=== PATIENT | male | born 1955 | race Caucasian/White ===

== ENCOUNTER 2023-02-06 05:33 | Inpatient (IN) | payer OTHER ==
[~2023-02-06] VITALS: Ht 188 cm; Wt 100.7 kg
--- NOTE | 2023-02-06 06:06 | NUR ---
BIBRA FOR C/O 210 EPIGATRIC PAIN SINCE 529. NO ASSOSCIATED SOB, DIZZINESS, OR NASUEA. PER BATCH PLANT SUPERVISOR ECG, AFIB W RVR, NO HX OF AFIB. HX OF NM WITH STENT PLACEMENT IN 2018, AND REPORTS PAIN DOES NOT FEEL THE SAME. PT AWAKE AND ALERT X4 RR EVEN AND UNLABORED. PLACED ON INFORMATION CONSULTANT AND PULSE OX, RATE IN 160S AND IRREGULAR. TOOK 162 ASA DRAFTER TOOL DESIGN.
[2023-02-06] MEDS ORDERED: DILTIAZEM HCL 25 MG IV ONE (06:13)
[2023-02-06 06:24] LABS: BASOPHILS # (AUTO) 0.1 K/uL (0.0-0.2); BASOPHILS % (AUTO) 0.5 % (0.0-2.0); EOSINOPHILS % (AUTO) 5.6 % (0.0-6.0); HEMATOCRIT 47 % (39-51); HEMOGLOBIN 15.9 g/dL (13.5-17.5); LYMPHOCYTES # (AUTO) 2.5 K/uL (0.8-4.8); LYMPHOCYTES % (AUTO) 25.7 % (20.0-44.0); MEAN CORPUSCULAR HGB CONC 34 g/dl (31.0-36.0); MEAN CORPUSCULAR VOLUME 89 fL (80-96); MONOCYTES # (AUTO) 1.5 K/uL (0.1-1.30); MONOCYTES % (AUTO) 15.4 % (2.0-12.0); NEUTROPHILS # (AUTO) 5.2 K/uL (1.8-8.9); NEUTROPHILS % (AUTO) 52.8 % (43.0-81.0); PLATELET COUNT (AUTO) 294 K/uL (150-450); RED BLOOD CELL COUNT(AUTO) 5.31 MIL/uL (4.5-6.0); WHITE BLOOD COUNT (AUTO) 9.8 K/uL (4.3-11.0)
[2023-02-06] MEDS ORDERED: ASPIRIN EC 81 MG TABLET.DR PO ONE (06:30)
[2023-02-06] MEDS ORDERED: DILTIAZEM HCL 50 MG IV IV ONE ×2 (06:30)
[2023-02-06] MEDS ORDERED: ASPIRIN 81 MG TAB.CHEW ONE (06:35)
[2023-02-06 06:45] LABS: CARBON DIOXIDE 28 mmol/L (21-32); CHLORIDE 104 mmol/L (98-107); CREATININE 1.1 mg/dL (0.6-1.3); GLUCOSE 208 mg/dL (74-106); POTASSIUM 3.5 mmol/L (3.5-5.1); SODIUM SERUM 140 mmol/L (136-145); UREA NITROGEN, BLOOD 16 mg/dL (7-18)
[2023-02-06] MEDS ORDERED: AMIODARONE 150 MG/3 ML VIAL IV ONE (07:13)
--- NOTE | 2023-02-06 07:22 | NUR ---
COVID SWAB TAKEN SENT TO LAB
[2023-02-06] MEDS ORDERED: AMIODARONE 150 MG in IV D5W 100 ML IV ONE (07:30)
--- NOTE | 2023-02-06 07:35 | NUR ---
Patient AOx4 able to express his concerns. Patient with no signs of distress, states he is aware of plan of care and verbalized agreement. Daughter at bedside, per pts request. ALl safety precautions taken, no signs of IV infiltration. Will continue to monitor.
[2023-02-06 08:00] VITALS: BP 122/78
[2023-02-06] MEDS ORDERED: AMIODARONE 450 MG in IV D5W 241 ML IV PRN (08:00)
--- NOTE | 2023-02-06 09:11 | NUR ---
[phone] FAX # FOR CLINICALS. UNDERGROUND TRUCK OPERATOR KIMMIE #[phone] OPT[facility] 2
[2023-02-06 09:46] LABS: ALBUMIN 3.5 g/dL (3.4-5.0); BILIRUBIN,TOTAL 0.6 mg/dL (0.2-1.0); CALCIUM, SERUM 8.9 mg/dL (8.5-10.1); MAGNESIUM 2.3 mg/dL (1.8-2.4); POTASSIUM 4.4 mmol/L (3.5-5.1); TOTAL PROTEIN, SERUM 6.9 g/dL (6.4-8.2)
--- NOTE | 2023-02-06 10:20 | NUR ---
room 111-1 , admitting made aware
--- NOTE | 2023-02-06 10:49 | NUR ---
given report to Neeta FISHMAN, for cont of care
[2023-02-06] MEDS ORDERED: ACETAMINOPHEN 325 MG TABLET PO PRN (11:00)
[2023-02-06] MEDS ORDERED: Z GUARD REMEDY 4 OZ OINT TP PRN (11:00)
[2023-02-06] MEDS ORDERED: MAGNESIUM HYDROXIDE 30 ML UDC PO PRN (11:00)
[2023-02-06] MEDS ORDERED: MAG HYDROX/AL HYDROX/SIMETH 30 ML UDC PO PRN (11:00)
[2023-02-06] MEDS ORDERED: ONDANSETRON HCL/PF 4 MG/2 ML VIAL IVP PRN (11:00)
--- NOTE | 2023-02-06 11:10 | NUR ---
yarn mercerizer operator helper note RECEIVED PATIENT FROM ER , JENNIFER WAS ADMITTED WITH CHEST PAIN AND IRREGULAR HEART BEAT , WAS DIAGNOSED WITH NONSTEMI AND A FIB .PATIENT WAS ADMITTED TO THE TELE UNIT ON AMIODARONE DRIP 1 ML/HR TILL 12 40 THEN 0.5 MG /HR PATIENT IS ALERT , ORIENTED TIMES 3 , ON 2 L OF OXYGEN VIA NC, O2 SAT 98 % , BREATHING NON LABORED , NO PAIN OR DISCOMFORT AT THIS TIME .IV ACCESS ON THE LEFT WRIST 20 G WITH AMIODARONE RUNNING .BED IS AT LOWEST POSITIOB , CALL LIGHT WITHIN REACH .WILL CONTINUE TO MONITOR.
[2023-02-06] MEDS ORDERED: ATOR40TA PO (11:12)
[2023-02-06] MEDS ORDERED: OMEP20CA15 PO (11:12)
[2023-02-06] MEDS ORDERED: LISI-768 PO (11:12)
[2023-02-06] MEDS ORDERED: ASPI-1169 PO (11:12)
[2023-02-06] MEDS ORDERED: CARV3.122 PO (11:12)
[2023-02-06] MEDS: ASPIRIN 81 MG TAB.CHEW PO SCH (11:35)
[2023-02-06] MEDS: ENOXAPARIN SODIUM 80 MG/0.8 ML DISP.SYRIN SQ SCH ×2 (11:42→22:47)
[2023-02-06 12:24] VITALS: BP 140/87
[2023-02-06 16:00] VITALS: BP 125/63
--- NOTE | 2023-02-06 18:36 | NUR ---
RN CLOSING NOTE PATIENT IS ALERT , ORIENTED TIMES 4 , ON O2 2L VIA N/C , BREATHING NON LABOR , O2 SAT 98 % .PATIENT HAS SR , AMIODARONE IV DISCONTINUE , 400 MG ORALLY TWICE DAILY . ALL MEDICATIONS WERE ADMINISTERED ORDERED , ALL NEEDS WERE MET ,WILL ENDORSE STONE BREAKER NURSE TO FALLOW POC.
--- NOTE | 2023-02-06 19:30 | NUR ---
JENNIFER RN OPENING NOTE RECEIVED PT IN BED AWAKE, WATCHING TV AT THIS TIME. A/O X4, ABLE TO MAKE NEEDS KNOWN. ON O2 2L VIA NC WITH NO S/S OF SOB OR DISTRESS. DENIES PAIN AT THIS TIME. ON INLAYER READING SR 62. IV ACCESS LFA #20G, INTACT, PATENT, FLUSHING WELL. SAFETY MEASURES IN PLACE: BED LOCKED AND IN LOWEST POSITION, SIDE RAILS UP X2, CALL LIGHT AND TRAY TABLE WITHIN REACH. WILL CONTINUE TO MONITOR AND ASSIST.
[2023-02-06 20:00] VITALS: BP 118/64
[2023-02-06] MEDS: AMIODARONE HCL 200 MG TABLET PO SCH (21:00)
--- NOTE | 2023-02-06 21:55 | NUR ---
RN NOTE PT HAS SCHEDULED AMIODARONE 400 MG FOR 2100, PARAMETERS TO HOLD IF HR <60. PT HR 58-62, BP 118/64, SINUS RHYTHM. DR GU CONSULTED, ORDERED TO HOLD MEDICATION.
--- NOTE | 2023-02-06 22:45 | NUR ---
RN NOTE LOVENOX 80 MG SCHEDULED FOR 2100 LATE ADMIN TO ACCOUNT FOR TIMING OF LAST ADMIN.
[2023-02-07] VITALS: BP 108/60
[2023-02-07 04:00] VITALS: BP 100/53
--- NOTE | 2023-02-07 06:59 | NUR ---
JENNIFER RN CLOSING NOTE PT IN BED AWAKE. A/O X4, ABLE TO MAKE NEEDS KNOWN. STABLE ON O2 2L VIA NC WITH NO S/S OF SOB OR DISTRESS, O2 SAT AT 96%. DENIES PAIN AT THIS TIME. ON CREW SUPERVISOR READING SINUS ORLIN 59 ([id number]). IV ACCESS LFA #20G SL, INTACT, PATENT, FLUSHING WELL. ALL CARE PROVIDED AND MEDS TOLERATED WELL. SAFETY MEASURES MAINTAINED: BED LOCKED AND IN LOWEST POSITION, SIDE RAILS UP X2, CALL LIGHT AND TRAY TABLE WITHIN REACH. WILL ENDORSE JUAN TO DAY SHIFT NURSE.
--- NOTE | 2023-02-07 07:24 | NUR ---
JENNIFER RN OPENING NOTE PT IN BED AWAKE, WATCHING TV AT THIS TIME. A/O X4, ABLE TO MAKE NEEDS KNOWN. ON O2 2L VIA NC WITH NO S/S OF SOB OR DISTRESS. DENIES PAIN AT THIS TIME. ON TUFTING MACHINE OPERATOR SINGLE NEEDLE READING SR 62. IV ACCESS LFA #20G, INTACT, PATENT, FLUSHING WELL. SAFETY MEASURES IN PLACE: BED LOCKED AND IN LOWEST POSITION, SIDE RAILS UP X2, CALL LIGHT AND TRAY TABLE WITHIN REACH. WILL CONTINUE TO MONITOR AND FALLOW POC
[2023-02-07] MEDS: ENOXAPARIN SODIUM 80 MG/0.8 ML DISP.SYRIN SQ SCH ×2 (08:20→21:50)
[2023-02-07] MEDS: ASPIRIN 81 MG TAB.CHEW PO SCH (08:20)
[2023-02-07] MEDS: AMIODARONE HCL 200 MG TABLET PO SCH ×2 (08:20→21:28)
[2023-02-07 08:22] LABS: BASOPHILS % (AUTO) 0.2 % (0.0-2.0); EOSINOPHILS % (AUTO) 4.2 % (0.0-6.0); HEMATOCRIT 48 % (39-51); HEMOGLOBIN 15.5 g/dL (13.5-17.5); LYMPHOCYTES # (AUTO) 2.9 K/uL (0.8-4.8); LYMPHOCYTES % (AUTO) 25.9 % (20.0-44.0); MEAN CORPUSCULAR HGB CONC 33 g/dl (31.0-36.0); MEAN CORPUSCULAR VOLUME 91 fL (80-96); MONOCYTES # (AUTO) 1.3 K/uL (0.1-1.30); NEUTROPHILS # (AUTO) 6.5 K/uL (1.8-8.9); NEUTROPHILS % (AUTO) 57.7 % (43.0-81.0); PLATELET COUNT (AUTO) 308 K/uL (150-450); RED BLOOD CELL COUNT(AUTO) 5.25 MIL/uL (4.5-6.0); WHITE BLOOD COUNT (AUTO) 11.2 K/uL (4.3-11.0)
[2023-02-07 09:00] LABS: ALBUMIN 3.5 g/dL (3.4-5.0); BILIRUBIN,TOTAL 0.7 mg/dL (0.2-1.0); CALCIUM, SERUM 9.2 mg/dL (8.5-10.1); CREATININE 1.2 mg/dL (0.6-1.3); MAGNESIUM 2.3 mg/dL (1.8-2.4); PHOSPHORUS 3.9 mg/dL (2.5-4.9); POTASSIUM 3.8 mmol/L (3.5-5.1); TOTAL PROTEIN, SERUM 6.8 g/dL (6.4-8.2)
[2023-02-07] MEDS: ATORVASTATIN 40 MG TABLET PO SCH (09:05)
[2023-02-07 09:26] VITALS: BP 136/78
[2023-02-07 10:31] LABS: CHOLESTEROL 157 mg/dL (<200); HDL CHOLESTEROL 50 mg/dL (40-60); LDL 88 mg/dL (0-99); TRIGLYCERIDES 173 mg/dL (30-150)
[2023-02-07] MEDS: METFORMIN 500 MG TABLET PO SCH ×2 (12:04→16:17)
[2023-02-07 12:06] VITALS: BP 128/78
[2023-02-07 16:09] VITALS: BP 135/84
--- NOTE | 2023-02-07 18:29 | NUR ---
JENNIFER RN CLOSING NOTE PT IN BED AWAKE. A/O X4, ABLE TO MAKE NEEDS KNOWN. STABLE ON O2 2L VIA NC WITH NO S/S OF SOB OR DISTRESS, O2 SAT AT 96%. DENIES PAIN AT THIS TIME. ON CAR LUBRICATOR READING SINUS ORLIN 59 ([id number]). IV ACCESS LFA #20G SL, INTACT, PATENT, FLUSHING WELL. ALL CARE PROVIDED AND MEDS TOLERATED WELL. SAFETY MEASURES MAINTAINED: BED LOCKED AND IN LOWEST POSITION, SIDE RAILS UP X2, CALL LIGHT AND TRAY TABLE WITHIN REACH. WILL ENDORSE JUAN to awake overnight monitor NURSE.
[2023-02-07 20:00] VITALS: BP 135/70
--- NOTE | 2023-02-07 20:05 | NUR ---
JENNIFER RN OPENING NOTE PT IS SITTING IN BED AT HIGH DAHL POSITION. HE IS ALERT AND ORIENTED, AO X 4. HE IS ABLE TO MAKE NEEDS KNOWN. PT IS ON RA, TOLERATED WELL. NO S/S OF DISTRESS OR SOB. PT DENIES OF HAVING PAIN AT THIS MOMENT. PT IS ON EXTERNAL SECURITY OFFICER. ON THE MONITOR, HIS HEART RHYTHM IS SR WITH HR AT 60S. IV ACCESS IS AT HIS L FA #20G, SL. FLUSHED WELL WITH 10 CC OF NS. IV SITE IS PATENT AND INTACT. SAFETY MEASURES IN PLACE: BED LOCKED AND IN LOWEST POSITION; SIDE RAILS UP X2; CALL LIGHT AND TABLE ARE WITHIN REACH. WILL CONTINUE MONITORING THE PT AND PROVIDE THE CARE PT NEEDS.
--- NOTE | 2023-02-07 21:40 | NUR ---
REGULATORY SPECIALIST NOTE CONTACTED SWIMMING POOL PLASTERER HELPER Nickoals VYAS, AND NOTIFIED HER THAT PT WOULD HAVE CT ANGIOGRAM TOMORROW. AND ASKED HER WHETHER SHE WANT TO HOLD PT'S 80 MG LOVENOX DUE AT 2200 TONIGHT. RECEIVED REPLY: GIVE TONIGHT AND HOLD TOMORROW'S DOSE. CHARGE NURSE, OJRGE, NOTIFIED.
[2023-02-08] VITALS (7 sets, daily range): BP systolic 114–146; BP diastolic 60–77
--- NOTE | 2023-02-08 06:36 | NUR ---
FRIT MIXER CLOSING NOTE PT IS SLEEPING IN BED AT SEMI DAHL POSITION; EASILY BEING AROUSED. HE IS ALERT AND ORIENTED, AO X 4. HE IS ABLE TO MAKE NEEDS KNOWN. PT IS ON RA, TOLERATED WELL. NO S/S OF DISTRESS OR SOB. PT DENIES OF HAVING PAIN AT THIS MOMENT. PT IS ON EXTERNAL LIBRARY MONITOR. ON THE MONITOR, HIS HEART RHYTHM IS SR WITH HR AT 60S. IV ACCESS IS AT HIS L FA #20G, SL. FLUSHED WELL WITH 10 CC OF NS. IV SITE IS PATENT AND INTACT. PATIENT HAS BEEN ON NPO SINCE 2358 ON 02/07/2023. PT IS GOING TO HAVE CT ANGIOGRAM TODAY; CONSENT IS IN PT'S CHART. SAFETY MEASURES IN PLACE: BED LOCKED AND IN LOWEST POSITION; SIDE RAILS UP X2; CALL LIGHT AND TABLE ARE WITHIN REACH. WILL ENDORSE NEXT SHIFT FOR CONTINUING PT CARE. Addendum: 02/08/23 at 0641 by GOPI HUDSON RN LOVENOX DUE AT 0900 NEEDS TO BE HELD THIS MORNING PER MD ORDER.
--- NOTE | 2023-02-08 07:31 | NUR ---
JENNIFER RN OPENING NOTE PT IN BED AWAKE, WATCHING TV AT THIS TIME. A/O X4, ABLE TO MAKE NEEDS KNOWN. ON ROOM AIR WITH NO S/S OF SOB OR DISTRESS. DENIES PAIN AT THIS TIME. ON PREASSEMBLER PRINTED CIRCUIT BOARD READING SR 60 BPM. IV ACCESS LFA #20G, INTACT, PATENT, FLUSHING WELL. SAFETY MEASURES IN PLACE: BED LOCKED AND IN LOWEST POSITION, SIDE RAILS UP X2, CALL LIGHT AND TRAY TABLE WITHIN REACH. WILL CONTINUE TO MONITOR AND CARE FOR PATIENT PER MD POC.
[2023-02-08] MEDS: ENOXAPARIN SODIUM 80 MG/0.8 ML DISP.SYRIN SQ SCH ×2 (09:00→21:34)
[2023-02-08] MEDS ORDERED: IOHEXOL-350 100 ML VIAL IV ONE (09:25)
[2023-02-08] MEDS ORDERED: IV NS 0.9% 250 ML IV ONE (09:25)
[2023-02-08] MEDS ORDERED: CT SWABBABLE VALVE TRANS SET 1 EA INFUS.SET MC ONE (09:25)
[2023-02-08] MEDS ORDERED: NITROGLYCERIN 0.4 MG/TAB BOTTLE ONE (09:25)
[2023-02-08] MEDS ORDERED: METOPROLOL TARTRATE INJ 5 MG/5 ML AMPUL ONE (09:25)
[2023-02-08 09:30] LABS: BASOPHILS # (AUTO) 0.1 K/uL (0.0-0.2); BASOPHILS % (AUTO) 0.7 % (0.0-2.0); EOSINOPHILS % (AUTO) 3.5 % (0.0-6.0); HEMATOCRIT 48 % (39-51); HEMOGLOBIN 15.6 g/dL (13.5-17.5); MEAN CORPUSCULAR HGB CONC 33 g/dl (31.0-36.0); MEAN CORPUSCULAR VOLUME 91 fL (80-96); MONOCYTES # (AUTO) 1.1 K/uL (0.1-1.30); MONOCYTES % (AUTO) 12.5 % (2.0-12.0); NEUTROPHILS # (AUTO) 5.1 K/uL (1.8-8.9); NEUTROPHILS % (AUTO) 60.3 % (43.0-81.0); PLATELET COUNT (AUTO) 271 K/uL (150-450); RED BLOOD CELL COUNT(AUTO) 5.32 MIL/uL (4.5-6.0); WHITE BLOOD COUNT (AUTO) 8.5 K/uL (4.3-11.0)
[2023-02-08 09:44] LABS: CALCIUM, SERUM 9.5 mg/dL (8.5-10.1); CREATININE 1.1 mg/dL (0.6-1.3); POTASSIUM 4.9 mmol/L (3.5-5.1)
[2023-02-08 09:52] LABS: ALBUMIN 3.3 g/dL (3.4-5.0); BILIRUBIN,TOTAL 0.7 mg/dL (0.2-1.0); MAGNESIUM 2.3 mg/dL (1.8-2.4); PHOSPHORUS 3.9 mg/dL (2.5-4.9); TOTAL PROTEIN, SERUM 6.7 g/dL (6.4-8.2)
[2023-02-08] MEDS ORDERED: METOPROLOL TARTRATE INJ 5 MG/5 ML AMPUL IVP PRN (10:00)
[2023-02-08] MEDS ORDERED: NITROGLYCERIN 0.4 MG/TAB BOTTLE SL ONE (10:00)
[2023-02-08] MEDS: ASPIRIN 81 MG TAB.CHEW PO SCH (10:26)
[2023-02-08] MEDS: ATORVASTATIN 40 MG TABLET PO SCH (10:27)
[2023-02-08] MEDS: AMIODARONE HCL 200 MG TABLET PO SCH ×2 (10:27→21:33)
--- NOTE | 2023-02-08 18:45 | NUR ---
JENNIFER RN CLOSING NOTE (DAY SHIFT) PT IN BED AWAKE. A/O X4, ABLE TO MAKE NEEDS KNOWN. STABLE ON ROOM AIR WITH NO S/S OF SOB OR DISTRESS, O2 SAT AT 95% TO 97%. DENIES PAIN AT THIS TIME. ON MOPHEAD TRIMMER AND WRAPPER READING SINUS ORLIN TO SINUS RYTHYM 50s TO 60s BPM. IV ACCESS LEFT AC #20G SL, INTACT, PATENT, FLUSHING WELL. ALL CARE PROVIDED AND MEDS TOLERATED WELL. SAFETY MEASURES MAINTAINED: BED LOCKED AND IN LOWEST POSITION, SIDE RAILS UP X2, CALL LIGHT AND TRAY TABLE WITHIN REACH. CT ANGIOGRAM WITH 3D IMAGE COMPLETED IN AM. WILL ENDORSE TO RESIDENTIAL CARE FACILITY MANAGER NURSE FOR JUAN.
--- NOTE | 2023-02-08 19:30 | NUR ---
CEMETERY WORKER OPENING RECEIVED PATIENT IN BED, AWAKE, ALERT AND ORIENTED X4. ABLE TO COMMUNICATE NEEDS WITH THE STAFFS. AFEBRILE AND NOT IN ANY FORM OF ACUTE DISTRESS. BREATHING EVEN AND NON LABORED. ON TELE MONITORING WITH CURRENT READING OF SR 65. WITH IV ACCESS ON LAC 20G-SL. SAFETY MEASURES IN PLACE. KEPT BED IN LOCKED AND IN LOW POSITION. SIDE RAILS UP X2. ADVISED TO USE THE CALL LIGHT WHEN IN NEED OF ASSISTANCE.
--- NOTE | 2023-02-08 20:55 | NUR ---
2054 Dr. Pride called for CTCA result of patient. CTCA result relayed and sent to him as requested.
[2023-02-09] VITALS: BP 146/61
[2023-02-09 04:00] VITALS: BP 147/72
--- NOTE | 2023-02-09 06:30 | NUR ---
VARNISHING UNIT OPERATOR CLOSING NOTE PATIENT IN BED, ASLEEP BUT EASY TO AROUSE AND RESPONSIVE. ALERT AND ORIENTED X4. ABLE TO COMMUNICATE NEEDS WITH THE STAFFS. AFEBRILE AND NOT IN ANY FORM OF ACUTE DISTRESS. BREATHING EVEN AND NON LABORED. ON TELE MONITORING WITH CURRENT READING OF SB 54 WITH BBB. WITH IV ACCESS ON LAC 20G-SL. MEDICATED ORDERED. SAFETY MEASURES IN PLACE. KEPT BED IN LOCKED AND IN LOW POSITION. SIDE RAILS UP X2. ADVISED TO USE THE CALL LIGHT WHEN IN NEED OF ASSISTANCE. ALL NURSING NEEDS ATTENDED. ENDORSED TO INCOMING SHIFT FOR CONTINUITY OF CARE.
--- NOTE | 2023-02-09 07:33 | NUR ---
INVESTMENT REPRESENTATIVE NOTE PATIENT IN BED , ALERT ORIENTED X4 ON RA ,NO SOB NOTED AT THIS TIME, ON TELE MONITOR SR HR 58 LT AC HL INTACT AND FLUSHED WELL , BED IN LOWEST AND LOCKED POSITION , SAFETY , MEASURE IMPLEMENTED CALL LIGHT WITHIN REACH , WILL CONT TO MONITOR CLOSELY
[2023-02-09 08:00] VITALS: BP 129/71
[2023-02-09] MEDS: AMIODARONE HCL 200 MG TABLET PO SCH ×2 (08:05→20:33)
[2023-02-09] MEDS: ATORVASTATIN 40 MG TABLET PO SCH (08:05)
--- NOTE | 2023-02-09 08:17 | NUR ---
SUPERVISOR TUBING NOTE PER DR SUSY COLON TO GIVE AMIODARONE 400 MG HR 58-60
[2023-02-09] MEDS: ASPIRIN 81 MG TAB.CHEW PO SCH (09:45)
[2023-02-09] MEDS: ENOXAPARIN SODIUM 80 MG/0.8 ML DISP.SYRIN SQ SCH ×2 (09:45→20:33)
--- NOTE | 2023-02-09 10:08 | NUR ---
television journalist note spoke with dr eugenie daley to to vice Mccullough and asa with posable angiogram tomorrow
--- NOTE | 2023-02-09 11:49 | NUR ---
AREA DIRECTOR OF HOME HEALTH SALES NOTE PER DR AMANDA COLON TO ORDER PROTONIX ,AWARE THAT OMEPRAZOLE NOT AVAILABLE IN HOSPITAL, PATIENT TAKING OMEPROZOL AT HOME, ASLO DR ZURITA AT BEDSIDE DISCUSSED ABOUT CARDIAC CATH TOMORROW
[2023-02-09 12:00] VITALS: BP 116/91
--- NOTE | 2023-02-09 14:41 | NUR ---
PROCESS STEWARD NOTE SPOKE WITH DR MONROE ORDERED NPO AFTER EARLY BREAKFAST AND GET CONCERT FOR CARDIAC CATH, PER PATIENT NOT GOING TO SIGNED NOW , HIS BROTHER WILL SPEAK WITH DR LAUREN WILL F\U Addendum: 02/09/23 at 1715 by JOSEPH COPPOLA RN gave phone number of brothel of patient to dr monroe to call him per patient request, patent dont want to sign consent before dr varma to his brother
--- NOTE | 2023-02-09 15:03 | NUR ---
TUBE ROOM SUPERVISOR NOTE CALLED TO DIETARY DEPARTMENT NOTIFIED THAT PATIENT NEED EARLY BREAKFAST WILL BE NPO AFTER THIS ,GOING TO CARDIAC CATHETERIZATION
[2023-02-09 16:00] VITALS: BP 116/64
--- NOTE | 2023-02-09 17:52 | NUR ---
telephoner note patient signed consent for cardiac cath
--- NOTE | 2023-02-09 18:44 | NUR ---
telemetry registered nurse note patient in bed , all needs attended , on ra no sob noted , on tele monitor sr hr 60 . lt fa hl intact and flushed well , no c\o pain or discomfort , all needs attended will cont to monitor closely
--- NOTE | 2023-02-09 19:30 | NUR ---
AIRPLANE TESTER OPENING NOTE RECEIVED PATIENT IN BED, AWAKE, ALERT AND ORIENTED X4. ABLE TO COMMUNICATE NEEDS. AFEBRILE AND NOT IN ANY FORM OF ACUTE DISTRESS. BREATHING EVEN AND NON LABORED. ON TELE MONITORING WITH CURRENT READING OF SR 63. WITH IV ACCESS ON LAC 20G-SL. SAFETY MEASURES IN PLACE. KEPT BED IN LOCKED AND IN LOW POSITION. SIDE RAILS UP X2. INSTRUCTED TO USE THE CALL LIGHT WHEN IN NEED OF ASSISTANCE. WILL CONTINUE TO MONITOR THROUGHOUT THE SHIFT.
[2023-02-09 20:00] VITALS: BP 135/58
--- NOTE | 2023-02-09 20:38 | NUR ---
RN NOTE PT SCHEDULED LOVENOX HELD AT THIS TIME D/T PT SCHEDULED FOR CARDIAC CATH IN AM. WILL CONT TO MONITOR.
[2023-02-10] VITALS: BP 131/63
[2023-02-10 04:00] VITALS: BP 128/68
--- NOTE | 2023-02-10 06:00 | NUR ---
RN NOTE CALLED KITCHEN TO F/UP ABOUT PT EARLY BREAKFAST TO BE SERVE PER MD ORDER. THEY SAID BREAKFAST CAN SERVE AT 0700 EARLIEST.
--- NOTE | 2023-02-10 06:44 | NUR ---
APPLIANCE PAINTER AND REFINISHER CLOSING NOTE PATIENT REMAINS IN BED, AWAKE, ALERT AND ORIENTED X4. ABLE TO COMMUNICATE NEEDS. AFEBRILE AND NOT IN ANY FORM OF ACUTE DISTRESS. BREATHING EVEN AND NON LABORED. ON TELE MONITORING WITH CURRENT READING OF SR 61. WITH IV ACCESS ON LAC 20G-SL. SAFETY MEASURES IN PLACE. KEPT BED IN LOCKED AND IN LOW POSITION. SIDE RAILS UP X2. DUE MEDS GIVEN INSTRUCTED TO USE THE CALL LIGHT WHEN IN NEED OF ASSISTANCE. AWAITING FOR BREAKFAST TO BE SERVED THEN NPO AFTERWARDS, WILL ENDORSE TO AM SHIFT NURSE FOR CONTINUITY OF CARE.
[2023-02-10 08:00] VITALS: BP 147/50
[2023-02-10] MEDS: ENOXAPARIN SODIUM 80 MG/0.8 ML DISP.SYRIN SQ SCH ×2 (08:02→21:00)
[2023-02-10] MEDS: ASPIRIN 81 MG TAB.CHEW PO SCH (08:16)
[2023-02-10 08:22] LABS: BASOPHILS # (AUTO) 0.1 K/uL (0.0-0.2); BASOPHILS % (AUTO) 0.6 % (0.0-2.0); EOSINOPHILS % (AUTO) 3.4 % (0.0-6.0); HEMATOCRIT 45 % (39-51); HEMOGLOBIN 14.9 g/dL (13.5-17.5); LYMPHOCYTES # (AUTO) 1.9 K/uL (0.8-4.8); LYMPHOCYTES % (AUTO) 22.7 % (20.0-44.0); MEAN CORPUSCULAR HGB CONC 33 g/dl (31.0-36.0); MEAN CORPUSCULAR VOLUME 89 fL (80-96); MONOCYTES % (AUTO) 12.7 % (2.0-12.0); NEUTROPHILS % (AUTO) 60.6 % (43.0-81.0); PLATELET COUNT (AUTO) 270 K/uL (150-450); RED BLOOD CELL COUNT(AUTO) 5.03 MIL/uL (4.5-6.0); WHITE BLOOD COUNT (AUTO) 8.2 K/uL (4.3-11.0)
[2023-02-10 08:32] LABS: CALCIUM, SERUM 9.1 mg/dL (8.5-10.1); CREATININE 1.1 mg/dL (0.6-1.3); POTASSIUM 4.1 mmol/L (3.5-5.1)
[2023-02-10] MEDS: AMIODARONE HCL 200 MG TABLET PO SCH ×2 (08:48→20:59)
[2023-02-10] MEDS: ATORVASTATIN 40 MG TABLET PO SCH (08:48)
[2023-02-10 12:00] VITALS: BP 145/66
--- NOTE | 2023-02-10 12:00 | NUR ---
PATIENT REQUESTED TO CHANGE HIS ROOM BECAUSE THE NEW ADMISSION WAS MAKING A LOT OF NOISE DUE TO THE RIGHT HIP FRACTURE PAIN, SO PATIENT IAN ARVIZU TRANSFERRED TO ROOM 104
[2023-02-10] MEDS: PANTOPRAZOLE 40 MG TABLET.DR PO SCH ×2 (12:40→16:29)
[2023-02-10] MEDS ORDERED: IV NS 0.9% 1,000 ML ONE (14:12)
[2023-02-10] MEDS ORDERED: IV SET PRIMARY PUMP SET 1 EA INFUS.SET MC ONE (14:12)
[2023-02-10] MEDS ORDERED: IODIXANOL 150 ML IV ONE (14:12)
[2023-02-10] MEDS ORDERED: LIDOCAINE HCL/MPF 1% 30 ML VIAL IJ ONE (14:13)
[2023-02-10] MEDS ORDERED: NITROGLYCERIN IN 5 % DEXTROSE 250 ML IV ONE (14:13)
--- NOTE | 2023-02-10 14:40 | NUR ---
PATIENT TAKEN TO THE SURGERY CARDIAC CATH BY OR STAFF
[2023-02-10] MEDS ORDERED: FENTANYL PF 100MCG/2ML AMPUL ONE (15:14)
[2023-02-10] MEDS ORDERED: MIDAZOLAM HCL 2 MG/2ML VIAL ONE (15:14)
[2023-02-10 16:00] VITALS: BP 110/70
--- NOTE | 2023-02-10 17:05 | NUR ---
TR BAND AIR REMOVAL 3RD ATTEMPT OXYGEN SATURATION 97% BP: 134/79 NO BLEEDING 5 CC AIR REMOVED REMAINING 3 CC WILL REMOVE THE REMAINING IN 150 MINUTES
--- NOTE | 2023-02-10 17:25 | NUR ---
IN ORDER TO REMOVE 3 CC OF AIR FROM PATIENT'S TR BAND I CHECKED THE PATIENT'S OXYGEN FROM RIGHT INDEX FINGER OXYGEN SATURATION 96% AND BP FROM HIS LEFT ARM 126/69.
--- NOTE | 2023-02-10 17:30 | NUR ---
TR BAND PLACED ON PATIENT'S RIGHT WRIST AT 1531 AT OPERATION ROOM WITH 16 CC OF AIR. 2 HRS AFTER AT 1730 3 CC OF AIR REMOVED WITHOUT BLEEDING. IN 15 MINUTES LATER I WILL TRY AGAIN TO REMOVE ANOTHER 3-4 CC.
--- NOTE | 2023-02-10 17:50 | NUR ---
TR BAND AIR REMOVING STEP 2: OXYGEN SATURATION 97 BP: 121/73 5CC OF AIR REMOVED WITHOUT BLEEDING TOTAL OF 7 CC SO FAR REMOVED OUT OF 16CC. REMAININ CC
--- NOTE | 2023-02-10 18:10 | NUR ---
TR BAND AIR REMOVAL OXYGEN 96% BP:134/69 5 CC OF AIR REMOVED NO BLEEDING REMAINING 3 CC
--- NOTE | 2023-02-10 18:25 | NUR ---
TR BAND AIR REMOVAL OXYGEN 95% BP: 131/61 REMAINING AIR 3 CC REMOVED NO BLEEDING TR BAND REMOVED NO BLEEDING, I UNFASTENED THE TR BAND WITH GENTLE PRESSURE, REMOVED THE BAND BY LIFTING SLOWLY TOWARD PALM OF HAND, STERILE DRESSING APPLIED.
--- NOTE | 2023-02-10 18:57 | NUR ---
RN CLOSING NOTE PATIENT ON ROOM AIR A/O X4. COOPERATIVE AND FOLLOWS COMMANDS. NO SOB OR DISTRESS NOTED. PATIENT STATUS POST CARDIAC CATH, ALL DUE MEDS GIVEN THROUGHOUT THE SHIFT. PATIENT KEPT CLEAN AND DRY. PATIENT IS AMBULATORY USES BATHROOM AND URINAL NEEDED. WILL ENDORSE THE PATIENT TO THE RIVET TOSSER NURSE FOR JUAN.
--- NOTE | 2023-02-10 19:54 | NUR ---
RN OPENING NOTES: RECEIVED PATIENT IN BED, AWAKE, ALERT/ORIENTED X4 AND VERBALLY RESPONSIVE. ON ROOM AIR AND PT TOLERATED WELL. IV ACCESS ON LAC#20G INTACT AND PATENT. NO S/S OF INFILTRATIONS. BREATHING EVEN AND UNLABORED. PT ON S/P CARDIAC CATH, TIER BAND HAD BEEN FROM RT HAND AND COVERED THE AREA WITH DRY DRESSING. NO BLEEDING NOTED. NO C/O PAIN OR DISCOMFORT. NO ACUTE DISTRESS. ABLE TO GO TO BATHROOM BY SELF. ALL SAFETY MEASURES IN PLACE. BED IN LOWEST POSITION AND LOCKED. SIDE RAILS UP X2, PLACE CALL LIGHT WITH IN REACH. WILL CONTINUE TO MONITOR
[2023-02-10 20:00] VITALS: BP 135/78
--- NOTE | 2023-02-10 21:20 | NUR ---
RN NOTES: PT'S AMIODARONE ON HOLD DUE TO PULSE- 59. PT CARDIAC CATH TODAY. NOTIFIED MORENO OLIVEIRA. ORDER TO HOLD THE LOVENOX. NOTED AND CARRIED OUT. WILL CONTINUE TO MONITOR
[2023-02-11] VITALS: BP 113/53
[2023-02-11 04:00] VITALS: BP 128/70
--- NOTE | 2023-02-11 06:33 | NUR ---
RN CLOSING NOTES: PATIENT IN BED, AWAKE, ALERT/ORIENTED X4 AND VERBALLY RESPONSIVE. ON ROOM AIR AND PT TOLERATED WELL. O2 SAT 96%. IV ACCESS ON LAC#20G INTACT AND PATENT. NO S/S OF INFILTRATIONS. BREATHING EVEN AND UNLABORED. NO C/O PAIN OR DISCOMFORT. NO ACUTE DISTRESS. ABLE TO GO TO BATHROOM BY SELF WITH STEADY GAIT. ALL DUE MEDS GIVEN ORDERED. ALL SAFETY MEASURES IN PLACE. BED IN LOWEST POSITION AND LOCKED. SIDE RAILS UP X2, PLACE CALL LIGHT WITH IN REACH. WILL ENDORSE TO MORNING SHIFT NURSE.
[2023-02-11] MEDS: PANTOPRAZOLE 40 MG TABLET.DR PO SCH ×3 (07:34→11:43)
[2023-02-11 08:00] VITALS: BP 137/66
[2023-02-11] MEDS: ATORVASTATIN 40 MG TABLET PO SCH (08:34)
[2023-02-11] MEDS: ASPIRIN 81 MG TAB.CHEW PO SCH (08:34)
[2023-02-11 08:35] VITALS: BP 137/66
[2023-02-11] MEDS ORDERED: APIXABAN 5 MG TABLET PO SCH (09:00)
[2023-02-11] MEDS ORDERED: AMIODARONE HCL 200 MG TABLET PO SCH (09:00)
--- NOTE | 2023-02-11 09:00 | NUR ---
AMIODARONE HELDDUE TO LOW HEART RATE 51. DR. JAIN NOTIFIED IN PERSON AND HE ORDERED TO HOLD THE MEDICATION.
[2023-02-11] MEDS ORDERED: APIX5TAB PO (11:13)
[2023-02-11] MEDS ORDERED: AMIO200T7 PO (11:13)
--- NOTE | 2023-02-11 12:30 | NUR ---
PATIENT LEFT THE HOSPITAL AMBULATORY, A FRIEND YOSEPH CAME AFTER THE PATIENT. PATIENT WAS STABLE UPON DISCHARGE. ALL DUE MEDS GIVEN BEFORE DISCHARGE. PATIENT SIGNED THE DISCHARGE CONSENT FORM, BELONGINGS FORM AND COPY PROVIDED TO THE PATIENT ALONG WITH HIS OTHER DISCHARGE PACKAGE. PATIENT'S ANGIOGRAM CD WAS NOT READY IN THAT MOMENT PATIENT WILL COME AND PICK IT UP TOMORROW.
== END 2023-02-11 12:40 | disposition home or self-care (01) | DRG 192 ==
LOC: ER 05:35 → TELE-TD 10:41 → TELE1 02-07 12:14 → ICU 02-10 14:57 → TELE1 02-10 15:51
PROVIDERS: ADMIT Internal Medicine; ATTEND Internal Medicine
PROC: 4A023N7 Measurement of Cardiac Sampling and Pressure, Left Heart, Percutaneous Approach (ICD-10-PCS; principal; 2023-02-10)
PROC: B2111ZZ Fluoroscopy of Multiple Coronary Arteries using Low Osmolar Contrast (ICD-10-PCS; 2023-02-10)
DX: I48.0 Paroxysmal atrial fibrillation (principal); I21.A1 Myocardial infarction type 2; I50.31 Acute diastolic (congestive) heart failure; D68.59 Other primary thrombophilia; I11.0 Hypertensive heart disease with heart failure; E11.65 Type 2 diabetes mellitus with hyperglycemia; I25.10 Atherosclerotic heart disease of native coronary artery without angina pectoris; E05.90 Thyrotoxicosis, unspecified without thyrotoxic crisis or storm; E78.5 Hyperlipidemia, unspecified; I25.2 Old myocardial infarction; Z79.01 Long term (current) use of anticoagulants; Z87.891 Personal history of nicotine dependence; Z95.5 Presence of coronary angioplasty implant and graft
CPT/HCPCS: 36415; 71045-TC; 75574; 80048-TC; 80053-TC; 80061-TC; 83735-TC; 84100-TC; 84443-TC; 84484-TC; 85025-TC; 85610-TC; 87081-TC; 93307-TC; A4223; C1887; C9803; G0378; G0500; J0282; J1644; J1650; J2250; J3010; J3490; J7030; J7050; J7060; Q9967